=== PATIENT | female | born 1945 | race Hispanic/Latino ===

== ENCOUNTER 2018-11-21 16:02 | Observation (INO) | payer OTHER, MEDICARE ==
[~2018-11-21] VITALS: Ht 160 cm; Wt 66.0 kg
[2018-11-21 17:12] LABS: BASOPHILS % (AUTO) 0.8 % (0.0-5.0); EOSINOPHILS % (AUTO) 2.9 % (0.0-8.0); HEMATOCRIT 38.3 % (36-48); LYMPHOCYTES % (AUTO) 28.2 % (21.0-51.0); MEAN CORPUSCULAR HEMOGLOBIN 30.7 pg (27.0-33.0); MEAN CORPUSCULAR HGB CONC 34.4 g/dL (32.0-36.0); MEAN CORPUSCULAR VOLUME 89.3 fL (79-99); MONOCYTES % (AUTO) 6.6 % (3.0-13.0); NEUTROPHILS % (AUTO) 61.5 % (40.0-77.0); PLATELET COUNT (AUTO) 194 K/uL (130-400); RED BLOOD CELL COUNT(AUTO) 4.28 MIL/uL (4.00-5.50); RED CELL DISTRIBUTION WIDTH 13.8 % (11.0-15.5); WHITE BLOOD COUNT (AUTO) 5.8 K/uL (4.8-10.8)
[2018-11-21 17:18] LABS: CREATININE 0.9 mg/dL (0.5-1.5); INR 0.95 (0.85-1.15); PARTIAL THROMBOPLASTIN TIME 27.1 SEC (26.3-35.5); POTASSIUM 3.6 mmol/L (3.5-5.1)
[2018-11-21 17:25] LABS: ALBUMIN 3.6 g/dL (3.5-5.0); BILIRUBIN,TOTAL 0.3 mg/dL (0.2-1.0); TOTAL PROTEIN, SERUM 6.9 g/dL (6.0-8.3)
[2018-11-21 17:30] LABS: CREATINE KINASE, TOTAL 103 U/L (21-232); MYOGLOBIN 33 ng/mL (10-92); TROPONIN I < 0.04 ng/mL (0.00-0.06)
[2018-11-21] MEDS ORDERED: LIDOCAINE HCL 1% MDV 50ML VIAL ONE (18:39)
[2018-11-21] MEDS ORDERED: CEFAZOLIN SODIUM 1 GM VIAL ONE (18:39)
[2018-11-21] MEDS ORDERED: BUPIVACAINE/PF 0.25% 30ML VIAL IJ ONE (18:39)
[2018-11-21] MEDS ORDERED: FENTANYL CITRATE PF 50 MCG/1 ML 2ML VIAL ONE (18:47)
[2018-11-21] MEDS ORDERED: MIDAZOLAM HCL 1 MG/ML 2ML VIAL ONE (18:47)
[2018-11-21] MEDS ORDERED: IOHEXOL-350 50ML VIAL IV ONE (18:58)
[2018-11-21] MEDS ORDERED: ACETAMINOPHEN 325 MG TAB PO PRN (19:45)
[2018-11-21] MEDS ORDERED: CEFAZOLIN SODIUM 1 GM VIAL IVP SCH (20:00)
[2018-11-21 20:07] VITALS: BP 138/76
--- NOTE | 2018-11-21 20:07 | NUR ---
ASSESSMENT: REPORT RECIEVED - PATIENT FROM [facility] S/P PPM INSERTION. PATIENT AAOX3, FOLLOWS COMMANDS, ROB 3MM EQUAL , EQUAL HAND GRASPS, STRONG X 4 . LEFT ARM IN SLING, DRESSING DRY AND INTACT TO LEFT SHOULDER . ICE PACK APPLIED. LUNGS CLEAR ON ROOM AIR, O2 SAT 97% . ABDOMEN SOFT , BOWEL SOUNDS ACTIVE. PEDAL PULSES PALPABLE. PATIENT DENIES PAIN. PLAN OF CARE DISCUSSED. CALL [place] IN REACH. FAMILY PRESENT.
[2018-11-21 20:15] VITALS: BP 132/80
[2018-11-21 20:31] VITALS: BP 155/84
[2018-11-21 20:46] VITALS: BP 136/83
[2018-11-21] MEDS ORDERED: PRAV20TA4 PO (21:02)
--- NOTE | 2018-11-21 21:05 | NUR ---
ORDER TO INFORM PCP OF ADMISSION. MESSAGE LEFT WITH ANSWERING SERVICE FOR DR FERRO . AWAITING RETURN CALL.
[2018-11-21 22:01] VITALS: BP 131/79
[2018-11-21 23:00] VITALS: BP 145/93
[2018-11-22 03:07] VITALS: BP 136/77
[2018-11-22] MEDS: CEFAZOLIN SODIUM 1 GM VIAL IVP SCH ×2 (03:21→09:24)
[2018-11-22 07:56] VITALS: BP 126/84
[2018-11-22] MEDS ORDERED: METO-391 PO (11:00)
[2018-11-22] MEDS ORDERED: APIX5TAB PO (11:00)
--- NOTE | 2018-11-22 11:00 | NUR ---
DR. SEPULVEDA IN TO SEE PT. PLAN OF CARE DISCUSSED. NEW ORDERS RECEIVED AND NOTED.
[2018-11-22 11:37] VITALS: BP 126/80
--- NOTE | 2018-11-22 12:08 | NUR ---
DISCHARGE INSTRUCTIONS GIVEN NOTED. ALL QUESTIONS ANSWERED. PIV AND BEDSIDE MONITORING DISCONTINUED. PT DISCHARGED VIA WHEELCHAIR.
== END 2018-11-22 12:08 | disposition home or self-care (01) ==
LOC: EDH 16:02 → 2CH 19:37
PROVIDERS: ADMIT Internal Medicine Cardiovascular Disease; ATTEND Internal Medicine Cardiovascular Disease
DX: I49.5 Sick sinus syndrome (principal); R55 Syncope and collapse; E78.5 Hyperlipidemia, unspecified; I46.9 Cardiac arrest, cause unspecified; I48.91 Unspecified atrial fibrillation; Z90.710 Acquired absence of both cervix and uterus; Z95.0 Presence of cardiac pacemaker; Z79.899 Other long term (current) drug therapy; Z80.9 Family history of malignant neoplasm, unspecified
CPT/HCPCS: 33208; 36415; 71046; 80053; 82550; 83874; 84484; 85025; 85610; 85730; 93005; 96374; 96376; 99284; C1785; C1898 ×2; G0378 ×16; J0690 ×3; J2250; J3010; J3490 ×2; Q9967; 99156; 99157

== ENCOUNTER 2018-12-10 11:28 | Emergency (ER) | payer OTHER, MEDICARE ==
[~2018-12-10 11:28] MED LIST: APIX5TAB PO; METO-391 PO; PRAV20TA4 PO
[2018-12-10 14:17] LABS: BASOPHILS % (AUTO) 0.8 % (0.0-5.0); EOSINOPHILS % (AUTO) 2.2 % (0.0-8.0); HEMATOCRIT 40.2 % (36-48); LYMPHOCYTES % (AUTO) 25.8 % (21.0-51.0); MEAN CORPUSCULAR HEMOGLOBIN 30.7 pg (27.0-33.0); MEAN CORPUSCULAR HGB CONC 34.2 g/dL (32.0-36.0); MEAN CORPUSCULAR VOLUME 89.7 fL (79-99); MONOCYTES % (AUTO) 6.8 % (3.0-13.0); NEUTROPHILS % (AUTO) 64.4 % (40.0-77.0); NUCLEATED RED BLOOD CELLS 0.1 % (0.0-0.19); PLATELET COUNT (AUTO) 222 K/uL (130-400); RED BLOOD CELL COUNT(AUTO) 4.48 MIL/uL (4.00-5.50); RED CELL DISTRIBUTION WIDTH 13.5 % (11.0-15.5); WHITE BLOOD COUNT (AUTO) 6.5 K/uL (4.8-10.8)
[2018-12-10 15:17] LABS: CARBON DIOXIDE 29 mmol/L (21-32); CHLORIDE 106 mmol/L (101-111); CREATININE 0.8 mg/dL (0.5-1.5); GLOMERULAR FILTR. RATE CALC 75 mL/min (>60); GLUCOSE,RANDOM 101 mg/dL (70-105); POTASSIUM 3.9 mmol/L (3.5-5.1); SODIUM SERUM 143 mmol/L (136-145); UREA NITROGEN, BLOOD 15 mg/dL (7-18)
[2018-12-10 15:26] LABS: CREATINE KINASE, TOTAL 74 U/L (21-232); TROPONIN I < 0.04 ng/mL (0.00-0.06)
== END 2018-12-10 18:17 | disposition home or self-care (01) ==
LOC: EDH 11:28
DX: I97.190 Other postprocedural cardiac functional disturbances following cardiac surgery (principal); R07.89 Other chest pain; E78.00 Pure hypercholesterolemia, unspecified; Z95.0 Presence of cardiac pacemaker
CPT/HCPCS: 36415; 71046; 80048; 82550; 84484; 85025; 93005

== ENCOUNTER 2019-03-16 01:46 | Emergency (ER) | payer OTHER, MEDICARE ==
[2019-03-16 02:55] LABS: BASOPHILS % (AUTO) 0.3 % (0.0-5.0); EOSINOPHILS % (AUTO) 0.1 % (0.0-8.0); HEMATOCRIT 39.2 % (36-48); LYMPHOCYTES % (AUTO) 10.6 % (21.0-51.0); MEAN CORPUSCULAR HEMOGLOBIN 30.6 pg (27.0-33.0); MEAN CORPUSCULAR HGB CONC 34.1 g/dL (32.0-36.0); MEAN CORPUSCULAR VOLUME 89.8 fL (79-99); MONOCYTES % (AUTO) 1.3 % (3.0-13.0); NEUTROPHILS % (AUTO) 87.7 % (40.0-77.0); NUCLEATED RED BLOOD CELLS 0.1 % (0.0-0.19); PLATELET COUNT (AUTO) 231 K/uL (130-400); RED BLOOD CELL COUNT(AUTO) 4.36 MIL/uL (4.00-5.50); RED CELL DISTRIBUTION WIDTH 14.1 % (11.0-15.5); WHITE BLOOD COUNT (AUTO) 7.9 K/uL (4.8-10.8)
[2019-03-16 03:03] LABS: CREATININE 0.8 mg/dL (0.5-1.5); POTASSIUM 3.9 mmol/L (3.5-5.1)
[2019-03-16 03:08] LABS: ALBUMIN 3.3 g/dL (3.5-5.0); BILIRUBIN,TOTAL 0.5 mg/dL (0.2-1.0)
== END 2019-03-16 04:06 | disposition home or self-care (01) ==
LOC: EDH 01:46
DX: M79.605 Pain in left leg (principal); E78.00 Pure hypercholesterolemia, unspecified
CPT/HCPCS: 36415; 80053; 85025; 93971

== ENCOUNTER 2019-04-13 11:38 | Emergency (ER) | payer OTHER, MEDICARE ==
[2019-04-13] MEDS ORDERED: DIAZEPAM 5 MG TABLET ONE (12:39)
[2019-04-13] MEDS ORDERED: KETOROLAC TROMETHAMINE 30MG/ML ONE (12:39)
[2019-04-13 13:03] LABS: BASOPHILS % (AUTO) 0.4 % (0.0-5.0); EOSINOPHILS % (AUTO) 0.3 % (0.0-8.0); HEMATOCRIT 36.6 % (36-48); LYMPHOCYTES % (AUTO) 8.5 % (21.0-51.0); MEAN CORPUSCULAR HEMOGLOBIN 30.3 pg (27.0-33.0); MEAN CORPUSCULAR HGB CONC 33.4 g/dL (32.0-36.0); MEAN CORPUSCULAR VOLUME 90.7 fL (79-99); MONOCYTES % (AUTO) 4.8 % (3.0-13.0); PLATELET COUNT (AUTO) 273 K/uL (130-400); RED BLOOD CELL COUNT(AUTO) 4.04 MIL/uL (4.00-5.50); RED CELL DISTRIBUTION WIDTH 14.3 % (11.0-15.5); WHITE BLOOD COUNT (AUTO) 14.6 K/uL (4.8-10.8)
[2019-04-13 13:30] LABS: POTASSIUM 3.3 mmol/L (3.5-5.1)
[2019-04-13 13:33] LABS: ALBUMIN 3.2 g/dL (3.5-5.0); BILIRUBIN,TOTAL 0.6 mg/dL (0.2-1.0)
[2019-04-13 14:14] LABS: APPEARANCE,URINE Clear (CLEAR); BILIRUBIN,URINE Negative (NEGATIVE); COLOR,URINE Yellow (YELLOW); GLUCOSE, URINE (UA) Negative (NEGATIVE); KETONES,URINE Negative (NEGATIVE); LEUKOCYTE ESTERASE ,URINE Negative (NEGATIVE); NITRATE,URINE Negative (NEGATIVE); OCCULT BLOOD,URINE Negative (NEGATIVE); PH,URINE 6.5 (5.0-8.0); PROTEIN,URINE Negative (NEGATIVE); UROBILINOGEN,URINE 0.2 mg/dL (0.2-1.0)
== END 2019-04-13 15:07 | disposition home or self-care (01) ==
LOC: EDH 11:38
DX: M54.5 Low back pain (principal); M79.605 Pain in left leg; M79.604 Pain in right leg; E78.00 Pure hypercholesterolemia, unspecified
CPT/HCPCS: 36415; 72192; 80053; 81003; 85025; 96374; 99285; J1885

== ENCOUNTER 2019-04-19 13:54 | Emergency (ER) | payer OTHER, MEDICARE ==
[2019-04-19 14:43] LABS: BASOPHILS % (AUTO) 0.7 % (0.0-5.0); EOSINOPHILS % (AUTO) 1.1 % (0.0-8.0); HEMATOCRIT 37.2 % (36-48); LYMPHOCYTES % (AUTO) 12.7 % (21.0-51.0); MEAN CORPUSCULAR HEMOGLOBIN 30.9 pg (27.0-33.0); MEAN CORPUSCULAR HGB CONC 34.2 g/dL (32.0-36.0); MEAN CORPUSCULAR VOLUME 90.3 fL (79-99); NEUTROPHILS % (AUTO) 79.5 % (40.0-77.0); PLATELET COUNT (AUTO) 300 K/uL (130-400); RED BLOOD CELL COUNT(AUTO) 4.12 MIL/uL (4.00-5.50); RED CELL DISTRIBUTION WIDTH 14.3 % (11.0-15.5); WHITE BLOOD COUNT (AUTO) 12.1 K/uL (4.8-10.8)
[2019-04-19 15:05] LABS: POTASSIUM 3.6 mmol/L (3.5-5.1)
[2019-04-19 15:11] LABS: ALBUMIN 2.9 g/dL (3.5-5.0); BILIRUBIN,TOTAL 0.5 mg/dL (0.2-1.0)
== END 2019-04-19 16:27 | disposition home or self-care (01) ==
LOC: EDH 13:54
DX: M71.22 Synovial cyst of popliteal space [Baker], left knee (principal); M71.21 Synovial cyst of popliteal space [Baker], right knee; M79.652 Pain in left thigh; M79.651 Pain in right thigh; E78.00 Pure hypercholesterolemia, unspecified; Z95.1 Presence of aortocoronary bypass graft
CPT/HCPCS: 36415; 80053; 85025; 93971

== ENCOUNTER → 2019-04-24 | Outpatient (CLI) | payer OTHER, MEDICARE | END | disposition home or self-care (01) | LOC: RAH 13:49 | PROVIDERS: ATTEND Internal Medicine Cardiovascular Disease | DX: I70.203 Unspecified atherosclerosis of native arteries of extremities, bilateral legs (principal); E78.5 Hyperlipidemia, unspecified | CPT/HCPCS: 93922 ==

== ENCOUNTER 2019-05-05 16:49 | Observation (INO) | payer OTHER, MEDICARE ==
[~2019-05-05] VITALS: Ht 160 cm; Wt 66.4 kg
[~2019-05-05 16:49] MED LIST changes: +ACET-2247 PO
[2019-05-05] MEDS ORDERED: SODIUM CHLORIDE 0.9% 500ML 500 ML IV ONE (17:51)
[2019-05-05 17:58] LABS: BASOPHILS % (AUTO) 0.2 % (0.0-5.0); EOSINOPHILS % (AUTO) 0.2 % (0.0-8.0); HEMATOCRIT 24.9 % (36-48); LYMPHOCYTES % (AUTO) 5.1 % (21.0-51.0); MEAN CORPUSCULAR HEMOGLOBIN 30.4 pg (27.0-33.0); MEAN CORPUSCULAR HGB CONC 34.5 g/dL (32.0-36.0); MONOCYTES % (AUTO) 7.7 % (3.0-13.0); NEUTROPHILS % (AUTO) 84.7 % (40.0-77.0); PLATELET COUNT (AUTO) 378 K/uL (130-400); RED BLOOD CELL COUNT(AUTO) 2.83 MIL/uL (4.00-5.50); RED CELL DISTRIBUTION WIDTH 13.6 % (11.0-15.5); WHITE BLOOD COUNT (AUTO) 16.9 K/uL (4.8-10.8)
[2019-05-05 18:15] LABS: CREATININE 1.1 mg/dL (0.5-1.5); POTASSIUM 3.2 mmol/L (3.5-5.1)
[2019-05-05 18:19] LABS: ALBUMIN 1.6 g/dL (3.5-5.0); BILIRUBIN,TOTAL 0.6 mg/dL (0.2-1.0); TOTAL PROTEIN, SERUM 5.7 g/dL (6.0-8.3)
[2019-05-05] MEDS ORDERED: ONDANSETRON HCL 4 MG/2 ML VIAL ONE (18:19)
[2019-05-05 19:21] LABS: APPEARANCE,URINE Cloudy (CLEAR); BILIRUBIN,URINE Negative (NEGATIVE); COLOR,URINE Yellow (YELLOW); GLUCOSE, URINE (UA) Negative (NEGATIVE); KETONES,URINE Negative (NEGATIVE); LEUKOCYTE ESTERASE ,URINE Negative (NEGATIVE); NITRATE,URINE Negative (NEGATIVE); OCCULT BLOOD,URINE Negative (NEGATIVE); PROTEIN,URINE POS 1+ mg/dL (NEGATIVE); UROBILINOGEN,URINE 0.2 mg/dL (0.2-1.0)
[2019-05-05 19:35] LABS: BACTERIA,URINE Moderate /HPF (None Seen); MUCUS,URINE Few LPF (None Seen)
[2019-05-05] MEDS ORDERED: POTASSIUM BICARB/CIT AC 25 MEQ TABLET.EFF ONE (19:52)
[2019-05-06] MEDS ORDERED: ONDANSETRON HCL 4 MG/2 ML VIAL ONE (01:47)
[2019-05-06] MEDS ORDERED: ONDANSETRON HCL 4 MG/2 ML VIAL IVP PRN (02:00)
[2019-05-06] MEDS ORDERED: HYDRALAZINE HCL 20 MG/ML VIAL IV PRN (02:00)
[2019-05-06] MEDS ORDERED: ACETAMINOPHEN 325 MG TAB PO PRN ×3 (02:00→08:45)
[2019-05-06 03:20] VITALS: BP 92/54
[2019-05-06 06:50] LABS: HEMATOCRIT 24.7 % (36-48); MEAN CORPUSCULAR HEMOGLOBIN 29.9 pg (27.0-33.0); MEAN CORPUSCULAR VOLUME 87.9 fL (79-99); PLATELET COUNT (AUTO) 360 K/uL (130-400); RED BLOOD CELL COUNT(AUTO) 2.81 MIL/uL (4.00-5.50); RED CELL DISTRIBUTION WIDTH 13.9 % (11.0-15.5); WHITE BLOOD COUNT (AUTO) 16.7 K/uL (4.8-10.8)
[2019-05-06 06:57] LABS: CREATININE 1.1 mg/dL (0.5-1.5); POTASSIUM 3.9 mmol/L (3.5-5.1)
[2019-05-06 07:32] VITALS: BP 85/45
[2019-05-06] MEDS ORDERED: SODIUM CHLORIDE 0.9% 1000ML 1,000 ML IV SCH (08:33)
[2019-05-06] MEDS ORDERED: POTASSIUM CHLORIDE 20 MEQ ERTAB PO PRN (08:45)
[2019-05-06] MEDS ORDERED: CEFTRIAXONE SODIUM 1 GM IV SCH (08:45)
[2019-05-06] MEDS ORDERED: POTASSIUM CHLORIDE 10% ELIXIR 20 MEQ/15 ML UDCUP PO PRN (08:45)
[2019-05-06] MEDS ORDERED: LACTULOSE 20 GM/30 ML UDCUP PO PRN (08:45)
[2019-05-06] MEDS ORDERED: POTASSIUM CHLORIDE 20MEQ/100ML 100 ML IV PRN (08:45)
[2019-05-06] MEDS ORDERED: NITROGLYCERIN 0.4 MG SL TAB SL PRN (08:45)
[2019-05-06] MEDS ORDERED: DiphenhydrAMINE HCL 50 MG/ML VIAL IV PRN (08:45)
[2019-05-06] MEDS ORDERED: GUAIFENESIN-DM 200/20 MG 10 ML PO PRN (08:45)
[2019-05-06] MEDS ORDERED: ONDANSETRON HCL 4 MG/2 ML VIAL IV PRN (08:45)
[2019-05-06] MEDS ORDERED: LIDOCAINE HCL-MPF 1% 2ML VIAL IV PRN (08:45)
[2019-05-06] MEDS ORDERED: LEVOFLOXACIN 750 MG/D5W 150 ML 150 ML IV SCH (09:00)
[2019-05-06] MEDS ORDERED: FAMOTIDINE/PF 20 MG/2 ML VIAL IV SCH (09:00)
[2019-05-06] MEDS ORDERED: PREGABALIN 75 MG CAPSULE PO SCH (09:00)
[2019-05-06] MEDS ORDERED: ALBUMIN (HUMAN) 25% 50 ML IV SCH (09:00)
[2019-05-06] MEDS ORDERED: MIDODRINE HCL 5 MG TABLET PO SCH (09:00)
--- NOTE | 2019-05-06 09:10 | NUR ---
DR. ROY AWARE OF CONSULT SPOKE TO MD VIA TELEPHONE REGARDING CONSULT.
[2019-05-06 09:18] LABS: ABG HCO3 22.5 mmol/L (21.0-28.0); ABG OXYGEN SATURATION 96.9 % (95.0-99.0); ABG PCO2 28 mmHg (32-45)
[2019-05-06 09:41] LABS: INR 1.12 (0.85-1.15); PARTIAL THROMBOPLASTIN TIME 39.5 SEC (26.3-35.5); PROTHROMBIN TIME 11.7 SEC (9.6-11.6)
[2019-05-06 11:05] LABS: AMPHET/METH SCREEN,URINE NEGATIVE (NEGATIVE); BARBITURATE SCREEN, URINE NEGATIVE (NEGATIVE); BENZODIAZEPINES SCREEN,URINE POSITIVE (NEGATIVE); CANNABINOID SCREEN,URINE NEGATIVE (NEGATIVE); COCAINE SCREEN,URINE NEGATIVE (NEGATIVE); OPIATE SCREEN,URINE NEGATIVE (NEGATIVE); PHENCYCLIDINE SCREEN,URINE NEGATIVE (NEGATIVE)
[2019-05-06 11:12] VITALS: BP 95/49
[2019-05-06] MEDS ORDERED: IPRATROPIUM/ALBUTEROL SULFATE 3 ML SOLUTION IH SCH (12:00)
[2019-05-06] MEDS ORDERED: KETOROLAC TROMETHAMINE 30MG/ML ONE (12:03)
[2019-05-06] MEDS ORDERED: KETOROLAC TROMETHAMINE 30MG/ML IV PRN (12:15)
[2019-05-06 15:50] VITALS: BP 87/50
[2019-05-06] MEDS ORDERED: DOXY100C2 PO (16:23)
[2019-05-06] MEDS ORDERED: ONDA4TAB4 PO (16:23)
--- NOTE | 2019-05-06 17:48 | NUR ---
DISCHARGE DISCHARGE TEACHING PROVIDED TO PATIENT AND PATIENTS DAUGHTER. PROVIDED TEACHING REGARDING RX (DOXYCYCLINE, ZOFRAN), SCHEDULED F/U APPT WITH DR. ROY TOMORROW 05/07/19 AND I STRESSED IMPORTANCE OF ATTENDING F/U APPT AND PRIMARY MD AND DR. ROY DISCHARGING PATIENT TODAY BECAUSE PATIENT IS TO ATTEND SCHEDULED F/U APPT. INFORMED PATIENT AND FAMILY THAT F/U WITH PCP DR. Liliya FISH PENDING TO SCHEDULED. PROVIDED TEACHING REGARDING HOME CARE, S/S TO MONITOR FOR AND WHEN TO RETURN TO ER (SOB, CHEST PAIN). INFORMED PATIENT AND HER DAUGHTER THAT PATIENT IS TO RESUME TAKING ALL HOME MEDICATIONS. PATIENT ASKED IF SHE CAN TAKE HER BLOOD THINNER [ELIQUIS] AND I ADVISED TO CONTINUE HOME MEDICATION ELIQUIS UNTIL HER DOCTOR RECOMMENDS TO STOP. ADVISED PATIENT TO MONITOR BLOOD PRESSURE PRIOR TO TAKE BLOOD PRESSURE MEDICATIONS. PATIENT AND HER DAUGHTER CONFIRMED PATIENT DOES HAVE BLOOD PRESSURE MONITORING DEVICE AT HOME. REMOVED 20G IV FROM RIGHT WRIST, CATHETER TIP INTACT. PATIENT TO BE DRIVEN HOME BY HER FAMILY.
[2019-05-08] MEDS ORDERED: IRON1CAP30 PO (18:20)
[2019-05-08] MEDS ORDERED: ACET650T24 PO (18:29)
== END 2019-05-06 17:54 | disposition home or self-care (01) ==
LOC: EDH 16:49 → EDHIP 16:50 → 4BH 05-06 02:28
PROVIDERS: ADMIT Internal Medicine Critical Care Medicine; ATTEND Internal Medicine Critical Care Medicine
DX: J90 Pleural effusion, not elsewhere classified (principal); I95.9 Hypotension, unspecified; N17.9 Acute kidney failure, unspecified; N18.9 Chronic kidney disease, unspecified; E43 Unspecified severe protein-calorie malnutrition; E78.5 Hyperlipidemia, unspecified; C34.90 Malignant neoplasm of unspecified part of unspecified bronchus or lung; N39.0 Urinary tract infection, site not specified; E87.1 Hypo-osmolality and hyponatremia; E87.5 Hyperkalemia; I48.91 Unspecified atrial fibrillation; Z95.0 Presence of cardiac pacemaker; Z90.710 Acquired absence of both cervix and uterus; Z79.01 Long term (current) use of anticoagulants; Z79.899 Other long term (current) drug therapy
CPT/HCPCS: 36415 ×2; 36600 ×2; 71045 ×2; 80048; 80053; 80305; 81001; 82550; 82803; 83735; 84484; 85025; 85027; 85610; 85730; 86850; 86900; 86901; 87088; 94640; 94664; 96365; 96375; 97116; 97161; 99284; A4600; G0378 ×16; G8978; G8979; G8980; G8981; G8982; G8983; J0696; J1885 ×2; J1956; J2405 ×2; J3490; J7040